=== PATIENT | male | born 1990 | race Two or more races ===

== ENCOUNTER 2019-10-03 11:03 | Inpatient (IN) | payer BC ==
[~2019-10-03] VITALS: Ht 180.3 cm; Wt 93.9 kg
[2019-10-03] VITALS (11 sets, daily range): BP systolic 115–167; BP diastolic 58–76
--- NOTE | 2019-10-03 11:49 | Pre-Procedure Note/Attestation ---
Pre-Procedure Note/Attestation Complete Prior to Procedure Planned Procedure: bilateral Procedure Narrative: Bilateral axillary excision of hidradenitis suppurativa with flap elevation and possible closure Attestation I attest that I discussed the nature of the procedure; its benefits; risks and complications; and alternatives (and the risks and benefits of such alternatives ), prior to the procedure, with the patient (or the patient's legal shipping services sales representative). I attest that, if there was a reasonable possibility of needing a blood transfusion, the patient (or the patient's legal shipping services sales representative) was given the [facility] standardized written summary, pursuant to the Gaurav Osmar Blood Safety Act ([place] Health and Safety Code # 1645, as amended). I attest that I re-evaluated the patient just prior to the surgery and that there has been no change in the patient's H&P, except as documented below: Hailey Keiht MD Oct 03, 2019 11:49
[2019-10-03] MEDS ORDERED: Midazolam 2mg/2ml Inj ONE (11:51)
[2019-10-03] MEDS ORDERED: fentaNYL 100 mcg/2 mL IV ONE (11:51)
[2019-10-03] MEDS ORDERED: Lidocaine 1% MPF 10mg/ml 5ml ONE (11:54)
[2019-10-03] MEDS ORDERED: Succinylcholine 20mg/ml 10ml vial ONE (11:58)
[2019-10-03] MEDS ORDERED: Bacitracin 50000 Units Vial ONE (11:58)
[2019-10-03] MEDS ORDERED: NeoSporin Gu Irrig 1ml Amp IRRIG ONE (11:58)
[2019-10-03] MEDS ORDERED: Rocuronium Bromide 100mg/10ml Inj IV ONE (11:58)
[2019-10-03] MEDS ORDERED: Lidocaine 1% 10mg/ml/Epi 0.005mg/ml 30ml vial INJ ONE (11:59)
[2019-10-03] MEDS ORDERED: EPINEPHrine 1mg/1ml Amp ONE (11:59)
[2019-10-03] MEDS ORDERED: PCA Education Pamphlet MISC ONE (12:00)
[2019-10-03] MEDS ORDERED: Zolpidem 5mg tab ORAL PRN (12:00)
[2019-10-03] MEDS ORDERED: PCA HYDROmorphone 1mg/ml 30 ML IV PRN (12:00)
[2019-10-03] MEDS ORDERED: Sterile Water Irrig 1000ml IRRIG ONE (12:00)
[2019-10-03] MEDS ORDERED: LR 1000ml ONE (12:00)
[2019-10-03] MEDS ORDERED: Neostigmine 1mg/ml 10ml Inj ONE (12:00)
[2019-10-03] MEDS ORDERED: NS Irrig 1000ml ONE (12:00)
[2019-10-03] MEDS ORDERED: Rate Change PCA 1 Each MISC PRN (12:00)
[2019-10-03] MEDS ORDERED: LR 1000ml 1,000 ML IVLG SCH (13:00)
[2019-10-03] MEDS ORDERED: Metoclopramide 10mg/2ml Inj IVP PRN (13:00)
[2019-10-03] MEDS ORDERED: DiphenhydrAMINE 50mg/ml Inj IVP PRN (13:00)
[2019-10-03] MEDS ORDERED: Meperidine 25mg/0.5ml Inj (FOR RIGORS ONLY) IV PRN (13:00)
[2019-10-03] MEDS ORDERED: Midazolam 2mg/2ml Inj IVP PRN (13:00)
[2019-10-03] MEDS ORDERED: Ketorolac 30mg Inj IV PRN (13:00)
[2019-10-03] MEDS ORDERED: Acetaminophen (Non formulary) 100 ML IV ONE (13:00)
--- NOTE | 2019-10-03 13:00 | Anethesia Preoperative Eval ---
Anesthesia Pre-op PMH/ROS General Date of Evaluation: Oct 03, 2019 Time of Evaluation: 11:50 Anesthesiologist: Colt ASA Score: ASA 2 Mallampati Score Class I : Soft palate, uvula, fauces, pillars visible Class II: Soft palate, uvula, fauces visible Class III: Soft palate, base of uvula visible Class IV: Only hard plate visible Mallampati Classification: Class II Surgeon: Sagar Diagnosis: Bilateral axillary HS Surgical Procedure: Excision of bilateral axillary HS Anesthesia History: none Family History: no anesthesia problems Allergies: Coded Allergies: No Known Allergies (Unverified , 10/03/19) Medications: see eMAR Patient NPO?: Yes Past Medical History Cardiovascular: Denies: HTN, CAD, CA, valve dz, arrhythmia, other Pulmonary: Denies: asthma, COPD, DANILO, other Gastrointestinal/Genitourinary: Reports: GERD - mild; Denies: CRI, ESRD, other Neurologic/Psychiatric: Reports: depression/anxiety; Denies: dementia, CVA, TIA, other Endocrine: Denies: DM, hypothyroidism, steroids, other HEENT: Denies: cataract (L), cataract (R), glaucoma, [place] (L), [place] (R), other Hematology/Immune: Denies: anemia, DVT, bleeding disorder, other Musculoskeletal/Integumentary: Reports: other - Recurrent HS; Denies: OA, RA, DJD, DDD, edema PMH Narrative: as above PSxH Narrative: Excision of pilonidal cyst Anesthesia Pre-op Phys. Exam Physician Exam Last Vital Signs Date Time Temp Pulse Resp B/P (MAP) Pulse Ox O2 Delivery O2 Flow Rate FiO2 10/03/19 11:46 98.6 70 18 115/73 100 Room Air Constitutional: NAD Neurologic: CN 2-12 intact Cardiovascular: RRR, no M/R/G Respiratory: CTA Gastrointestinal: S/NT/ND Airway Exam Mallampati Score: Class II MO: full Neck: flexible ROM: full Teeth: intact Dentures: no upper, no lower Anesthesia Pre-op A/P Labs see chart Studies Pre-op Studies: EKG - NSR Risk Assessment & Plan Assessment: ASA 2 Plan: GA with ETT Status Change Before Surgery: No Pre-Antibiotics Drug: Ancef 1gr. Given Within 1 Hr of Incision: Yes Time Given: 12:20 Mino Gregory MD Oct 03, 2019 13:00
[2019-10-03] MEDS ORDERED: Morphine Sulfate 10mg/ml Inj ONE (13:06)
[2019-10-03] MEDS ORDERED: Sodium Chloride 10ml vial INJ ONE (13:09)
[2019-10-03] MEDS ORDERED: Ketorolac 30mg Inj ONE (13:09)
[2019-10-03] MEDS ORDERED: Glycopyrrolate 0.2mg/ml 1ml Vial ONE (13:09)
[2019-10-03] MEDS ORDERED: Surgicel 4in x 8in TOPIC ONE (13:21)
--- NOTE | 2019-10-03 13:48 | Operative Note - PDOC ---
Operative Note Operative Note Pre-op Diagnosis: Bilateral axillary hidradenitis suppurativa Post-op Diagnosis: same as pre-op Surgeon: Sagar Bed Spring Maker: Shelly Anesthesia: general Specimen: yes Complications: none Condition: stable Estimated Blood Loss: minimal Drains: none Implant(s) used?: No Hailey Keith MD Oct 03, 2019 13:48
--- NOTE | 2019-10-03 14:04 | Immediate Post-Op Evaluation ---
Immediate Post-Op Evalulation Immediate Post-Op Evalulation Procedure: Excision of bilateral axillary hydradenitis Date of Evaluation: Oct 03, 2019 Time of Evaluation: 14:03 IV Fluids: 1000 Blood Products: none Estimated Blood Loss: 50 Urinary Output: none Blood Pressure Systolic: 156 Blood Pressure Diastolic: 72 Pulse Rate: 86 Respiratory Rate: 20 O2 Sat by Pulse Oximetry: 99 Temperature (Fahrenheit): 97.6 Pain Score (1-10): 1 Nausea: No Vomiting: No Complications none Patient Status: reacts, patent, extubated, none Hydration Status: adequate Mino Gregory MD Oct 03, 2019 14:04
[2019-10-03] MEDS ORDERED: Milk of Magnesia 30ml Ud ORAL PRN (15:45)
[2019-10-03] MEDS: LR 1000ml 1,000 ML IV SCH (16:23)
--- NOTE | 2019-10-03 16:45 | History and Physical ---
History of Present Illness General Date patient seen: Oct 03, 2019 Time patient seen: 16:25 Reason for Hospitalization: pain, post surgical hypoxia, open surgical wound Present Illness HPI 28 year old gentleman with a past medical history of hydradenitis presents post surgery with Dr. Keith of excision of b/l hydradenitis ini the axillary region. Pateint tolerated proedure well. The was only 50cc estimated blood loss. He received 1L of NS during the procedure. After surgery pt remained hypoxia and is currently on 3L NC. He has some pain at the surgical site that is requiring IV pain medication. Patient will be admitted for pain control, supplemental oxygen management and IV antibiotic management. Allergies: Coded Allergies: No Known Allergies (Unverified , 10/03/19) COVID-19 Screening Contact w/high risk pt: No Experienced COVID-19 symptoms?: No Patient History Healthcare decision maker N Resuscitation status Full Advanced Directive on File Family History Family History: FH: CAD (coronary artery disease) Review of Systems Constitutional: Reports: no symptoms Eye: Reports: no symptoms ENT: Reports: no symptoms Respiratory: Reports: no symptoms Cardiovascular: Reports: no symptoms Gastrointestinal: Reports: no symptoms Genitourinary: Reports: no symptoms Musculoskeletal: Reports: no symptoms Skin: Reports: other - Hydradenitis Psychiatric: Reports: no symptoms Neurological: Reports: no symptoms Endocrine: Reports: no symptoms Hematologic/Lymphatic: Reports: no symptoms All Other Systems: negative except mentioned in HPI ROS Narrative Patient feeling well after surgery. wants to eat food brought by family. Physical Exam General Appearance: no apparent distress, alert, lethargic, alert oriented x3 Lines, tubes and drains: peripheral HEENT: normocephalic, atraumatic, PERRL Neck: non-tender, normal alignment, supple Respiratory/Chest: lungs clear, normal breath sounds, no respiratory distress, no accessory muscle use, decreased breath sounds Cardiovascular/Chest: normal rate, regular rhythm, no gallop/murmur, no JVD Abdomen: non tender, soft, no organomegaly, no mass Extremities: non-tender, normal inspection Skin Exam: normal pigmentation, warm/dry, other - surgical wounds in axilla Neurologic: director of cath lab II-XII grossly normal, alert, oriented x 3, responsive, normal mood/affect Last 24 Hour Vital Signs Date Time Temp Pulse Resp B/P (MAP) Pulse Ox O2 Delivery O2 Flow Rate FiO2 10/03/19 15:21 97.9 10/03/19 15:06 14 10/03/19 14:57 97.9 10/03/19 14:55 97.9 57 13 100 Nasal Cannula 3 145/58 10/03/19 14:51 15 10/03/19 14:40 61 15 100 Nasal Cannula 3 147/62 10/03/19 14:26 60 19 100 Nasal Cannula 3 154/63 10/03/19 14:16 64 15 100 Simple Mask 6 147/62 10/03/19 14:06 65 15 100 Simple Mask 6 140/61 10/03/19 14:04 86 20 99 10/03/19 14:01 64 13 100 Simple Mask 6 140/63 10/03/19 13:56 97.8 92 22 100 Simple Mask 6 167/72 10/03/19 11:46 98.6 70 18 115/73 100 Room Air 10/03/19 11:25 Room Air Height (Feet): 5 Height (Inches): 11.00 Weight (Pounds): 207 Medications Current Medications Medications (Trade) Dose Ordered Sig/Miryam Route PRN Reason Start Time Stop Time Status Last Admin Dose Admin Acetaminophen (Tylenol) 650 mg Q4H PRN ORAL FEVER (T>100.5F) 10/03/19 12:00 11/02/19 11:59 Dextrose (Dextrose 50%) 25 ml Q30M PRN IV Hypoglycemia 10/03/19 15:45 01/01/20 15:44 Dextrose (Dextrose 50%) 50 ml Q30M PRN IV Hypoglycemia 10/03/19 15:45 01/01/20 15:44 Docusate Sodium (Colace) 100 mg TWICE A DAY ORAL 10/03/19 18:00 11/02/19 17:59 Heparin Sodium (Porcine) (Heparin 5000 units/ml) 5,000 units EVERY 12 HOURS SUBQ 10/03/19 21:00 11/17/19 20:59 Hydromorphone HCl 30 ml @ 0 mls/hr Q24H PRN IV For Pain 10/03/19 12:00 10/05/19 11:59 10/03/19 14:51 Lactated Ringer's 1,000 ml @ 75 mls/hr [id number] IV 10/03/19 16:30 11/02/19 16:29 10/03/19 16:23 Magnesium Hydroxide (Mom) 30 ml HSPRN PRN ORAL Constipation 10/03/19 15:45 11/02/19 15:44 Miscellaneous Medication (TRACK LAYING EQUIPMENT OPERATOR Rate Change) 1 ea DAILYPRN PRN MISC rate change 10/03/19 12:00 10/05/19 11:59 Miscellaneous Medication (TRACK LAYING EQUIPMENT OPERATOR shift volume) 1 ea Q12HR@0700,1900 MISC 10/03/19 19:00 10/05/19 18:59 Ondansetron HCl (Zofran) 4 mg Q6H PRN IVP Nausea & Vomiting 10/03/19 15:45 11/02/19 15:44 Zolpidem Tartrate (Ambien) 5 mg HSPRN PRN ORAL Insomnia 10/03/19 12:00 10/10/19 11:59 Assessment/Plan Problem List: (1) Hypoxia ICD Codes: R09.02 - Hypoxemia SNOMED: 086630228 (2) Hidradenitis axillaris ICD Codes: L73.2 - Hidradenitis suppurativa SNOMED: 734138247 (3) Hidradenitis suppurativa ICD Codes: L73.2 - Hidradenitis suppurativa SNOMED: 90170453 (4) Intractable pain ICD Codes: R52 - Pain, unspecified SNOMED: 83168396 Assessment/Plan: 28 year old gentleman with hydradenitis of the axilla present after surgery with pain and hypoxia. # Hydradenitis axillaris - S/P excision 10/02 # Post surgical Pain # Post-surgical hypoxia - likely atelectasis - Order basic labs - Continue Ancef - Follow up cultures - Pain control with TRACK LAYING EQUIPMENT OPERATOR pump. - Out of bed to chair - Regular diet if pass bedside swallow eval. - Wound care - Supplimental O2 to keepsaturation above 92% - SubQ heparin 5000 units BID I spent 70 min on this admission talking with patient and family. Coordinated with Surgeon. Literature review of Hydaradenitis. Multiple calls from nursing and staff. Extensive chart review. Saqib Navarro M.D. Oct 03, 2019 16:45
[2019-10-03] MEDS: Docusate 100mg cap ORAL SCH (17:51)
--- NOTE | 2019-10-03 18:15 | Operative Note - Dictated ---
DATE OF OPERATION: 10/03/2019 PREOPERATIVE DIAGNOSIS: Bilateral axillary hidradenitis suppurativa. POSTOPERATIVE DIAGNOSIS: Bilateral axillary hidradenitis suppurativa. PROCEDURES: 1. Radical excision of left axillary infected tissue bearing hidradenitis suppurativa resulting in a defect that measured 10 x 8 cm. 2. Radical excision of right axillary infected tissue bearing hidradenitis suppurativa resulting in a defect that measured 10 x 6 cm. 3. Elevation of a left fasciocutaneous thoracodorsal artery mechanical shop laborer flap for staged closure of left axillary wound. 4. Elevation of a right fasciocutaneous thoracodorsal artery mechanical shop laborer flap for staged closure of right axillary wound. 5. Excision of hidradenitis suppurativa focus in right upper arm. SURGEON: Hailey Keith MD. PROTOCOL MANAGER: Azael Bravo MD. ANESTHESIA: General. EBL: Minimal. COMPLICATIONS: None. DRAINS: None. SPECIMEN: Included the bilateral axillary tissue as well as a right upper arm tissue. DISPOSITION: Stable to the recovery room. INDICATIONS FOR SURGERY: This is a 28-year-old male with a longstanding history of hidradenitis suppurativa in his bilateral axillae who I saw in my office and examined and noted that he had extensive disease involving his axillary regions. He had tried and failed medical management and based on his exam and symptoms, I felt that he was an appropriate candidate for urgent treatment to address his symptoms. The level infection that was present was more significant on the left side. There was purulent drainage from that area. There were also some areas of drainage in the right but not to the extent that was present on the left axilla. Given the presence of infection, it will be more prudent to perform a staged excision and closure with removal of the infected tissue today followed by a staged closure of the wounds within the next 72 hours with definitive closure using the flap that will be raised in this operation. DETAILS OF THE OPERATION: The patient was brought to the operating room, placed supine on the operating table. His bilateral axillae were prepped and draped in a sterile usual fashion. The area of disease in the left axilla was marked using a marking pen and a #15 blade was then used to make the incision around the skin removing the disease bearing tissue. Electrocautery was then used to dissect further down to the axillary fascia. The specimen was then removed on block. Upon completion of the excision of the infected hidradenitis tissue in the axilla, the resulting defect measured 10 x cm. A corresponding fasciocutaneous thoracodorsal artery mechanical shop laborer flap that was U-shaped was designed and a #10 blade was used to make sure that it would fit once transposed into the defect. Once dimension of the flap were noted to be appropriate, #15 blade was then used to make this U-shaped incision over the skin and dissection was carried down all the way to the level of the latissimus muscle fascia and the flap was elevated completely to its base to allow for a free tension-free transposition into the axillary defect. The wound was temporally closed with ar by closing the donor site as well as placing the flap into the defect and there was noted to be good soft tissue coverage without any tension. Once again given the fact that there was pus present within the specimen, I felt that it would be most prudent to perform a delayed closure of the wound to reduce the incidence of postoperative wound and surgical site infections and as such the wound was then copiously irrigated with pulse lavage. The flap was then placed back into its donor site and stapled in position and the axillary defect was then covered with a bulky dressing and a bulky dressings were applied to the whole surgical site. We then turned our attention to the contralateral side. In a similar fashion, a 15-blade was used to make the incision around the affected area that was marked and then electrocautery was used to dissect all the way down to the level of the axillary fascia. Once the specimen was removed on block, this resulted in a 10 x 6 centimeter defect. With the defect well visualized, corresponding thoracodorsal artery fasciocutaneous flap was elevated that was fashioned similar as to the other side with dimensions confirmed to be fitting the defect by using a #10 blade and once the dimensions were confirmed to be of appropriate size #15 blade was then used to make the U-shaped incision. Dissection was carried down to the latissimus muscle fascia and the flap was elevated and transposed into the defect without any tension or tethering. As was done on the other side, the wound was tentatively closed with ar to make sure that all the soft tissue coverage was tension free and adequate but again given the fact that this was a infected wound we decided to delayed closure by putting flap back into the donor site, stapling it in position and bring the patient back within 72 hours for definitive flap inset and adjacent tissue transfer closure of the wound. The patient tolerated the procedure well. There was no complications. Plan as stated will be to bring the patient back to the operating room within 72 hours. Hailey Keith M.D. DR: Ewa JOB#: [id number] CC:
[2019-10-03] MEDS: PCA shift volume MISC SCH (19:25)
[2019-10-03] MEDS: ceFAZolin sod 1 GM in D5W 55 ML IVPB SCH (20:11)
[2019-10-03 20:13] LABS: BASOPHILS % (AUTO) 0.8 % (0.0-2.0); EOSINOPHILS % (AUTO) 1.5 % (0.0-3.0); HEMATOCRIT 40.7 % (42.0-52.0); LYMPHOCYTES % (AUTO) 31.4 % (20.0-45.0); MEAN CORPUSCULAR VOLUME 84 FL (80-99); MONOCYTES % (AUTO) 8.5 % (1.0-10.0); NEUTROPHILS % (AUTO) 57.8 % (45.0-75.0); PLATELET COUNT 268 K/UL (150-450); RED BLOOD COUNT 4.83 M/UL (4.70-6.10); RED CELL DISTRIBUTION WIDTH 11.2 % (11.6-14.8); WHITE BLOOD COUNT 10.4 K/UL (4.8-10.8)
[2019-10-03 20:27] LABS: ALANINE AMINOTRANSFERASE 32 U/L (12-78); ALBUMIN 3.4 G/DL (3.4-5.0); ALBUMIN/GLOBULIN RATIO 0.9 (1.0-2.7); ALKALINE PHOSPHATASE 108 U/L (46-116); ANION GAP 6 mmol/L (5-15); ASPARTATE AMINO TRANSFERASE 21 U/L (15-37); BILIRUBIN,TOTAL 0.5 MG/DL (0.2-1.0); BLOOD UREA NITROGEN 12 mg/dL (7-18); CALCIUM 8.2 MG/DL (8.5-10.1); CARBON DIOXIDE 28 MMOL/L (21-32); CHLORIDE 105 MMOL/L (98-107); CREATININE 1.1 MG/DL (0.55-1.30); POTASSIUM 3.6 MMOL/L (3.5-5.1); SODIUM 139 MMOL/L (136-145)
[2019-10-03] MEDS ORDERED: Heparin 5000 units/ml inj SUBQ SCH (21:00)
[2019-10-03] MEDS: Heparin 5000 units/ml inj SUBQ SCH (21:47)
[2019-10-04] VITALS (7 sets, daily range): BP systolic 101–144; BP diastolic 55–80
[2019-10-04] MEDS: LR 1000ml 1,000 ML IV SCH ×2 (05:02→17:19)
[2019-10-04] MEDS: ceFAZolin sod 1 GM in D5W 55 ML IVPB SCH ×3 (05:03→20:43)
[2019-10-04 05:48] LABS: BASOPHILS % (AUTO) 0.6 % (0.0-2.0); EOSINOPHILS % (AUTO) 1.6 % (0.0-3.0); HEMATOCRIT 41.4 % (42.0-52.0); HEMOGLOBIN 14.2 G/DL (14.2-18.0); LYMPHOCYTES % (AUTO) 31.8 % (20.0-45.0); MEAN CORPUSCULAR VOLUME 85 FL (80-99); MONOCYTES % (AUTO) 6.5 % (1.0-10.0); NEUTROPHILS % (AUTO) 59.6 % (45.0-75.0); PLATELET COUNT 248 K/UL (150-450); RED BLOOD COUNT 4.84 M/UL (4.70-6.10); RED CELL DISTRIBUTION WIDTH 10.6 % (11.6-14.8); WHITE BLOOD COUNT 9.4 K/UL (4.8-10.8)
[2019-10-04 06:11] LABS: ALANINE AMINOTRANSFERASE 29 U/L (12-78); ALBUMIN 3.2 G/DL (3.4-5.0); ALBUMIN/GLOBULIN RATIO 0.9 (1.0-2.7); ALKALINE PHOSPHATASE 110 U/L (46-116); ANION GAP 6 mmol/L (5-15); ASPARTATE AMINO TRANSFERASE 19 U/L (15-37); BILIRUBIN,TOTAL 0.7 MG/DL (0.2-1.0); BLOOD UREA NITROGEN 11 mg/dL (7-18); CARBON DIOXIDE 28 MMOL/L (21-32); CHLORIDE 103 MMOL/L (98-107); CREATININE 1.2 MG/DL (0.55-1.30); POTASSIUM 3.6 MMOL/L (3.5-5.1); SODIUM 137 MMOL/L (136-145)
[2019-10-04] MEDS: PCA shift volume MISC SCH ×2 (07:02→19:16)
[2019-10-04] MEDS: Heparin 5000 units/ml inj SUBQ SCH ×2 (08:09→20:47)
[2019-10-04] MEDS: Docusate 100mg cap ORAL SCH ×2 (08:10→17:18)
--- NOTE | 2019-10-04 10:12 | General Progress Note ---
Progress Note Progress Note Pt seen and examined. Doing well. Dressings soaked on the left side. Had to be replaced. Pain is well controlled. Continue LINING VAMPER and IV abx. Plan for OR on Sunday for definitive closure of wounds. Consent to be signed today. Hailey Washington MD, MD Oct 04, 2019 10:12
--- NOTE | 2019-10-04 11:13 | General Progress Note ---
Assessment/Plan Problem List: (1) Hypoxia ICD Codes: R09.02 - Hypoxemia SNOMED: 926016183 (2) Hidradenitis axillaris ICD Codes: L73.2 - Hidradenitis suppurativa SNOMED: 562680442 (3) Hidradenitis suppurativa ICD Codes: L73.2 - Hidradenitis suppurativa SNOMED: 97771759 (4) Intractable pain ICD Codes: R52 - Pain, unspecified SNOMED: 33839520 Assessment/Plan: 28 year old gentleman with hydradenitis of the axilla present after surgery with pain and hypoxia. # Hydradenitis axillaris - S/P excision 10/02 # Post surgical Pain # Post-surgical hypoxia - likely atelectasis # Drainage from Axilla surgical site - Labs reviewd - Continue Ancef - Follow up cultures - Pain control with GREENS PICKER pump. - Ambulate with assist - Regular diet - Wound care - Supplimental O2 to keepsaturation above 92% - SubQ heparin 5000 units BID - Plan for surgical closure on Thursday 10/05 I spent 36 min on this encounter talking with patient and family. Coordinated with Surgeon. Multiple calls from nursing and staff. Subjective Date patient seen: Oct 04, 2019 Time patient seen: 11:01 ROS Limited/Unobtainable: No Constitutional: Reports: no symptoms HEENT: Reports: no symptoms Cardiovascular: Reports: no symptoms Respiratory: Reports: no symptoms Gastrointestinal/Abdominal: Reports: no symptoms Genitourinary: Reports: no symptoms Neurologic/Psychiatric: Reports: no symptoms Endocrine: Reports: no symptoms Hematologic/Lymphatic: Reports: no symptoms Allergies: Coded Allergies: No Known Allergies (Unverified , 10/03/19) Subjective Pateint feels good. In some pain. Using GREENS PICKER pump. Objective Last 24 Hour Vital Signs Date Time Temp Pulse Resp B/P (MAP) Pulse Ox O2 Delivery O2 Flow Rate FiO2 10/04/19 09:00 Room Air 10/04/19 08:00 98.1 72 17 124/67 (86) 98 10/04/19 04:00 98.2 71 18 119/64 (82) 98 10/04/19 00:00 97.8 63 18 101/55 (70) 98 10/03/19 21:00 Nasal Cannula 3.0 10/03/19 20:00 97.9 63 18 131/67 (88) 100 10/03/19 16:00 97.9 87 17 122/69 (86) 100 10/03/19 15:35 Nasal Cannula 3.0 10/03/19 15:21 97.9 10/03/19 15:15 97.5 64 18 135/76 (95) 100 10/03/19 15:06 14 10/03/19 14:57 97.9 10/03/19 14:55 97.9 57 13 100 Nasal Cannula 3 145/58 10/03/19 14:51 15 10/03/19 14:40 61 15 100 Nasal Cannula 3 147/62 10/03/19 14:26 60 19 100 Nasal Cannula 3 154/63 10/03/19 14:16 64 15 100 Simple Mask 6 147/62 10/03/19 14:06 65 15 100 Simple Mask 6 140/61 10/03/19 14:04 86 20 99 10/03/19 14:01 64 13 100 Simple Mask 6 140/63 10/03/19 13:56 97.8 92 22 100 Simple Mask 6 167/72 10/03/19 11:46 98.6 70 18 115/73 100 Room Air 10/03/19 11:25 Room Air Intake and Output 10/03/19 10/04/19 19:00 07:00 Intake Total 1375 ml 1600 ml Output Total 50 ml Balance 1325 ml 1600 ml Intake Oral 200 ml 700 ml IV Total 1175 ml 900 ml Output Estimated Blood Loss 50 ml # Voids 1 2 Laboratory Tests 10/03/19 19:55: White Blood Count 10.4, Red Blood Count 4.83, Hemoglobin 14.0L, Hematocrit 40.7L , Mean Corpuscular Volume 84, Mean Corpuscular Hemoglobin 29.1, Mean Corpuscular Hemoglobin Concent 34.5, Red Cell Distribution Width 11.2L, Platelet Count 268, Mean Platelet Volume 8.5, Neutrophils (%) (Auto) 57.8, Lymphocytes (%) (Auto) 31.4, Monocytes (%) (Auto) 8.5, Eosinophils (%) (Auto) 1.5, Basophils (%) (Auto) 0.8, Sodium Level 139, Potassium Level 3.6, Chloride Level 105, Carbon Dioxide Level 28, Anion Gap 6, Blood Urea Nitrogen 12, Creatinine 1.1, Estimat Glomerular Filtration Rate > 60, Glucose Level 95, Calcium Level 8.2L, Magnesium Level 1.9, Total Bilirubin 0.5, Aspartate Amino Transf (AST/SGOT) 21, Alanine Aminotransferase (ALT/SGPT) 32, Alkaline Phosphatase 108, Total Protein 7.0, Albumin 3.4, Globulin 3.6, Albumin/Globulin Ratio 0.9L 10/04/19 05:05: White Blood Count 9.4, Red Blood Count 4.84, Hemoglobin 14.2, Hematocrit 41.4L, Mean Corpuscular Volume 85, Mean Corpuscular Hemoglobin 29.3, Mean Corpuscular Hemoglobin Concent 34.3, Red Cell Distribution Width 10.6L, Platelet Count 248, Mean Platelet Volume 8.3, Neutrophils (%) (Auto) 59.6, Lymphocytes (%) (Auto) 31.8, Monocytes (%) (Auto) 6.5, Eosinophils (%) (Auto) 1.6, Basophils (%) (Auto ) 0.6, Sodium Level 137, Potassium Level 3.6, Chloride Level 103, Carbon Dioxide Level 28, Anion Gap 6, Blood Urea Nitrogen 11, Creatinine 1.2, Estimat Glomerular Filtration Rate > 60, Glucose Level 88, Calcium Level 8.0L, Total Bilirubin 0.7, Aspartate Amino Transf (AST/SGOT) 19, Alanine Aminotransferase ( ALT/SGPT) 29, Alkaline Phosphatase 110, Total Protein 6.8, Albumin 3.2L, Globulin 3.6, Albumin/Globulin Ratio 0.9L Height (Feet): 5 Height (Inches): 11.00 Weight (Pounds): 205 General Appearance: no apparent distress, alert Neck: non-tender, normal alignment, supple Cardiovascular: normal peripheral pulses, normal rate, regular rhythm, no gallop/murmur, no JVD Respiratory/Chest: chest wall non-tender, normal breath sounds, no respiratory distress, no accessory muscle use Abdomen: non tender, soft, no organomegaly, no mass Pelvis: normal external exam Extremities: normal range of motion, non-tender, normal inspection Edema: no edema noted Arm (L), no edema noted Arm (R), no edema noted Leg (L), no edema noted Leg (R), no edema noted Pedal (L), no edema noted Pedal (R), no edema noted Generalized Neurologic: manufacturing manager II-XII grossly normal, no motor/sensory deficits, alert, oriented x 3, responsive, normal mood/affect Skin: other - drainage from axillary sugical site Saqib Navarro M.D. Oct 04, 2019 11:13
[2019-10-04] MEDS: DiphenhydrAMINE 50mg/ml Inj IVP PRN (20:43)
[2019-10-04] MEDS ORDERED: Heparin 5000 units/ml inj SUBQ SCH (21:00)
[2019-10-05 03:44] VITALS: BP 149/90
[2019-10-05] MEDS: DiphenhydrAMINE 50mg/ml Inj IVP PRN ×4 (04:10→23:16)
[2019-10-05] MEDS: ceFAZolin sod 1 GM in D5W 55 ML IVPB SCH ×3 (05:16→21:33)
[2019-10-05] MEDS: PCA shift volume MISC SCH ×2 (06:58→19:07)
[2019-10-05 08:00] VITALS: BP 115/68
[2019-10-05] MEDS: LR 1000ml 1,000 ML IV SCH ×2 (08:35→21:33)
[2019-10-05] MEDS: Docusate 100mg cap ORAL SCH ×2 (08:35→17:13)
[2019-10-05] MEDS: Heparin 5000 units/ml inj SUBQ SCH (08:37)
--- NOTE | 2019-10-05 10:50 | General Progress Note ---
Assessment/Plan Problem List: (1) Hypoxia ICD Codes: R09.02 - Hypoxemia SNOMED: 214955461 (2) Hidradenitis axillaris ICD Codes: L73.2 - Hidradenitis suppurativa SNOMED: 096365453 (3) Hidradenitis suppurativa ICD Codes: L73.2 - Hidradenitis suppurativa SNOMED: 31254856 (4) Intractable pain ICD Codes: R52 - Pain, unspecified SNOMED: 64833868 Assessment/Plan: 28 year old gentleman with hydradenitis of the axilla present after surgery with pain and hypoxia. # Hydradenitis axillaris - S/P excision 10/02 # Post surgical Pain # Post-surgical hypoxia - likely atelectasis # Drainage from Axilla surgical site - Labs reviewd - Continue Ancef - Follow up cultures - Pain control with DECORATOR LIGHTING FIXTURES pump. - Ambulate with assist - Regular diet - Wound care - Supplimental O2 to keepsaturation above 92% - SubQ heparin 5000 units BID - Plan for surgical closure on Thursday 10/05 I spent 36 min on this encounter talking with patient and family. Coordinated with Surgeon. Multiple calls from nursing and staff. Subjective Date patient seen: Oct 05, 2019 Time patient seen: 09:00 ROS Limited/Unobtainable: No Constitutional: Reports: no symptoms HEENT: Reports: no symptoms Cardiovascular: Reports: no symptoms Respiratory: Reports: no symptoms Gastrointestinal/Abdominal: Reports: no symptoms Genitourinary: Reports: no symptoms Neurologic/Psychiatric: Reports: no symptoms Endocrine: Reports: no symptoms Hematologic/Lymphatic: Reports: no symptoms Allergies: Coded Allergies: No Known Allergies (Unverified , 10/03/19) Subjective Patient feels good.just complaining of itching at bandage site. Objective Last 24 Hour Vital Signs Date Time Temp Pulse Resp B/P (MAP) Pulse Ox O2 Delivery O2 Flow Rate FiO2 10/05/19 08:00 97.8 91 20 115/68 (84) 96 10/05/19 03:44 98.4 96 18 149/90 (109) 97 10/04/19 23:48 99.2 87 18 131/80 (97) 97 10/04/19 21:00 Room Air 10/04/19 20:00 98.8 93 20 122/74 (90) 96 10/04/19 16:00 98.5 82 17 122/60 (80) 99 10/04/19 12:00 97.8 74 18 144/64 (90) 97 Intake and Output 10/04/19 10/05/19 19:00 07:00 Intake Total 900 ml 500 ml Output Total 2400 ml Balance 900 ml -1900 ml Intake Oral 900 ml 500 ml Output Urine Total 2400 ml # Voids 5 4 Height (Feet): 5 Height (Inches): 11.00 Weight (Pounds): 205 General Appearance: no apparent distress, alert Neck: non-tender, normal alignment, supple Cardiovascular: normal peripheral pulses, normal rate, regular rhythm, no gallop/murmur, no JVD Respiratory/Chest: chest wall non-tender, lungs clear, normal breath sounds, no respiratory distress, no accessory muscle use Abdomen: normal bowel sounds, non tender, soft, no organomegaly, no mass Extremities: non-tender, normal inspection Edema: no edema noted Arm (L), no edema noted Arm (R), no edema noted Leg (L), no edema noted Leg (R), no edema noted Pedal (L), no edema noted Pedal (R), no edema noted Generalized Neurologic: music department chair II-XII grossly normal, alert, oriented x 3, responsive, normal mood/affect Skin: other - nodrainage out of surgical wound Saqib Navarro M.D. Oct 05, 2019 10:50
[2019-10-05 12:00] VITALS: BP 108/63
[2019-10-05] MEDS ORDERED: PCA HYDROmorphone 1mg/ml 30 ML IV PRN (12:57)
[2019-10-05] MEDS ORDERED: Rate Change PCA 1 Each MISC PRN (13:00)
[2019-10-05 16:00] VITALS: BP 123/73
[2019-10-05 20:00] VITALS: BP 116/74
[2019-10-05 23:40] VITALS: BP 116/69
[2019-10-06] VITALS (10 sets, daily range): BP systolic 123–167; BP diastolic 66–82
[2019-10-06] MEDS: ceFAZolin sod 1 GM in D5W 55 ML IVPB SCH ×3 (05:01→21:19)
[2019-10-06 06:45] LABS: BASOPHILS % (AUTO) 0.7 % (0.0-2.0); EOSINOPHILS % (AUTO) 2.2 % (0.0-3.0); HEMATOCRIT 41.6 % (42.0-52.0); LYMPHOCYTES % (AUTO) 29.6 % (20.0-45.0); MEAN CORPUSCULAR VOLUME 87 FL (80-99); MONOCYTES % (AUTO) 8.6 % (1.0-10.0); NEUTROPHILS % (AUTO) 58.9 % (45.0-75.0); PLATELET COUNT 261 K/UL (150-450); WHITE BLOOD COUNT 9.4 K/UL (4.8-10.8)
--- NOTE | 2019-10-06 07:02 | 48 Hour Post Anesthesia Eval ---
Post Anesthesia Evaluation Procedure: Excision of bilateral axillary hydradenitis Date of Evaluation: Oct 06, 2019 Time of Evaluation: 07:01 Blood Pressure Systolic: 126 0: 65 Pulse Rate: 66 Respiratory Rate: 14 Temperature (Fahrenheit): 98.5 O2 Sat by Pulse Oximetry: 96 Airway: patent Nausea: No Vomiting: No Hydration Status: adequate Mental Status/LOC: patient returned to baseline Post-Anesthesia Complications: none Follow-up care needed: N/A Lilian Watson CRNA Oct 06, 2019 07:02
[2019-10-06 07:11] LABS: ALANINE AMINOTRANSFERASE 77 U/L (12-78); ALBUMIN 3.3 G/DL (3.4-5.0); ALBUMIN/GLOBULIN RATIO 0.8 (1.0-2.7); ALKALINE PHOSPHATASE 120 U/L (46-116); ANION GAP 5 mmol/L (5-15); ASPARTATE AMINO TRANSFERASE 61 U/L (15-37); BILIRUBIN,TOTAL 0.4 MG/DL (0.2-1.0); BLOOD UREA NITROGEN 11 mg/dL (7-18); CALCIUM 8.8 MG/DL (8.5-10.1); CARBON DIOXIDE 31 MMOL/L (21-32); CHLORIDE 104 MMOL/L (98-107); CREATININE 1.3 MG/DL (0.55-1.30); POTASSIUM 3.7 MMOL/L (3.5-5.1); SODIUM 140 MMOL/L (136-145)
[2019-10-06] MEDS: PCA shift volume MISC SCH ×2 (07:28→19:24)
[2019-10-06] MEDS: Docusate 100mg cap ORAL SCH ×2 (09:00→18:00)
[2019-10-06] MEDS ORDERED: LR 1000ml 1,000 ML IVLG SCH (10:23)
--- NOTE | 2019-10-06 10:25 | Immediate Post-Op Evaluation ---
Immediate Post-Op Evalulation Immediate Post-Op Evalulation Procedure: Bilateral Flap Closure, Axilla Date of Evaluation: Oct 06, 2019 Time of Evaluation: 15:39 IV Fluids: 100 Blood Products: 0 Estimated Blood Loss: 25 Urinary Output: 0 Blood Pressure Systolic: 183 Blood Pressure Diastolic: 82 Pulse Rate: 91 Respiratory Rate: 16 O2 Sat by Pulse Oximetry: 100 Temperature (Fahrenheit): 97.5 Pain Score (1-10): 2 Nausea: No Vomiting: No Complications 0 Patient Status: awake, reacts, patent, extubated, none Hydration Status: adequate Dru Gram Ancef IV Given Within 1 Hr of Incision: Yes Time Given: 13:16 Delta Blount MD Oct 06, 2019 10:25
[2019-10-06] MEDS ORDERED: oxyCODONE HCL/Acetaminophen 5/325mg ORAL PRN (10:30)
[2019-10-06] MEDS ORDERED: Acetaminophen (Non formulary) 100 ML IV ONE (10:30)
[2019-10-06] MEDS ORDERED: LORazepam Inj 2mg/ml 1ml IV PRN (10:30)
[2019-10-06] MEDS ORDERED: Meperidine 25mg/0.5ml Inj (FOR RIGORS ONLY) IV PRN (10:30)
[2019-10-06] MEDS ORDERED: HYDROcodone/Acetamin 7.5/325 tab ORAL PRN (10:30)
[2019-10-06] MEDS ORDERED: Midazolam 2mg/2ml Inj IVP PRN (10:30)
[2019-10-06] MEDS ORDERED: Atropine Sulfate 0.4mg/ml inj IVP PRN (10:30)
[2019-10-06] MEDS ORDERED: Ketorolac 30mg Inj IV PRN ×2 (10:30)
[2019-10-06] MEDS ORDERED: HYDROcodone/Acetamin 5/325 tab ORAL PRN (10:30)
[2019-10-06] MEDS ORDERED: Metoclopramide 10mg/2ml Inj IVP PRN ×2 (10:30→11:30)
[2019-10-06] MEDS ORDERED: fentaNYL 100 mcg/2 mL IV PRN (10:30)
[2019-10-06] MEDS ORDERED: Labetalol 5mg/ml 20ml vial IV PRN (10:30)
[2019-10-06] MEDS ORDERED: Hydromorphone 0.5mg/0.5ml inj IVP PRN (10:30)
[2019-10-06] MEDS ORDERED: DiphenhydrAMINE 50mg/ml Inj IVP PRN (10:30)
[2019-10-06] MEDS: LR 1000ml 1,000 ML IV SCH ×2 (11:10→23:37)
--- NOTE | 2019-10-06 11:25 | Pre-Procedure Note/Attestation ---
Pre-Procedure Note/Attestation Complete Prior to Procedure Planned Procedure: bilateral Procedure Narrative: Bilateral axillary wound flap reconstruction with closure of right arm wound Indications for Procedure Pre-Operative Diagnosis: Bilateral axillary hidradenitis suppurativa Attestation I attest that I discussed the nature of the procedure; its benefits; risks and complications; and alternatives (and the risks and benefits of such alternatives ), prior to the procedure, with the patient (or the patient's legal field representatives director). I attest that, if there was a reasonable possibility of needing a blood transfusion, the patient (or the patient's legal field representatives director) was given the [facility] standardized written summary, pursuant to the [place] Blood Safety Act ([place] Health and Safety Code # 1645, as amended). I attest that I re-evaluated the patient just prior to the surgery and that there has been no change in the patient's H&P, except as documented below: Hailey Keith MD Oct 06, 2019 11:25
[2019-10-06] MEDS ORDERED: Zolpidem 5mg tab ORAL PRN (11:30)
[2019-10-06] MEDS ORDERED: PCA HYDROmorphone 1mg/ml 30 ML IV PRN (11:30)
[2019-10-06] MEDS ORDERED: Lidocaine 1% MPF 10mg/ml 5ml ONE (11:30)
[2019-10-06] MEDS ORDERED: PCA Education Pamphlet MISC ONE (11:30)
[2019-10-06] MEDS ORDERED: Sodium Chloride 10ml vial INJ ONE (11:30)
[2019-10-06] MEDS ORDERED: Rate Change PCA 1 Each MISC PRN (11:30)
[2019-10-06] MEDS ORDERED: fentaNYL 100 mcg/2 mL IV ONE ×2 (11:31→14:35)
[2019-10-06] MEDS ORDERED: Lidocaine 1% Plain 30 ml INJ ONE ×2 (11:31→14:30)
[2019-10-06] MEDS ORDERED: NeoSporin Gu Irrig 1ml Amp IRRIG ONE (11:33)
[2019-10-06] MEDS ORDERED: Lidocaine 1% 10mg/ml/Epi 0.005mg/ml 30ml vial INJ ONE (11:33)
[2019-10-06] MEDS ORDERED: Bacitracin 50000 Units Vial ONE (11:33)
--- NOTE | 2019-10-06 12:02 | General Progress Note ---
Assessment/Plan Problem List: (1) Hypoxia ICD Codes: R09.02 - Hypoxemia SNOMED: 516111947 (2) Hidradenitis axillaris ICD Codes: L73.2 - Hidradenitis suppurativa SNOMED: 160529479 (3) Hidradenitis suppurativa ICD Codes: L73.2 - Hidradenitis suppurativa SNOMED: 50870346 (4) Intractable pain ICD Codes: R52 - Pain, unspecified SNOMED: 90362850 Assessment/Plan: 28 year old gentleman with hydradenitis of the axilla present after surgery with pain and hypoxia. # Hydradenitis axillaris - S/P excision 10/02 # Post surgical Pain # Post-surgical hypoxia - likely atelectasis # Drainage from Axilla surgical site - Labs reviewd - Continue Ancef - Follow up cultures - Pain control with DIRECTOR OF LABORATORY OPERATIONS pump. - Ambulate with assist - Regular diet - Wound care - Bowel regiment - Supplimental O2 to keepsaturation above 92% - SubQ heparin 5000 units BID -held for surgery - Surgical closure today. Home with home health. I spent 38 min on this encounter talking with patient and family. Coordinated with Surgeon. Multiple calls from nursing and staff. Case management coordination. Subjective Date patient seen: Oct 06, 2019 Time patient seen: 08:20 ROS Limited/Unobtainable: No Constitutional: Reports: no symptoms HEENT: Reports: no symptoms Cardiovascular: Reports: no symptoms Respiratory: Reports: no symptoms Gastrointestinal/Abdominal: Reports: constipated Genitourinary: Reports: no symptoms Neurologic/Psychiatric: Reports: no symptoms Endocrine: Reports: no symptoms Hematologic/Lymphatic: Reports: no symptoms Allergies: Coded Allergies: No Known Allergies (Unverified , 10/03/19) Subjective Patient feels good. Says there is some drainage from Left axilla. No BM yet. Objective Last 24 Hour Vital Signs Date Time Temp Pulse Resp B/P (MAP) Pulse Ox O2 Delivery O2 Flow Rate FiO2 10/06/19 09:00 Room Air 10/06/19 08:00 97.8 84 18 131/77 (95) 98 10/06/19 08:00 84 16 98 10/06/19 07:02 66 14 96 10/06/19 04:00 98.4 84 20 124/66 (85) 96 10/05/19 23:40 98.8 85 20 116/69 (85) 98 10/05/19 20:48 Room Air 10/05/19 20:00 99.0 95 18 116/74 (88) 96 10/05/19 16:00 98.7 92 20 123/73 (90) 98 10/05/19 13:34 97.6 10/05/19 12:00 97.6 87 20 108/63 (78) 95 Intake and Output 10/05/19 10/06/19 19:00 07:00 Intake Total 850 ml 500 ml Balance 850 ml 500 ml Intake Oral 850 ml 500 ml # Voids 4 4 Laboratory Tests 10/06/19 05:05: White Blood Count 9.4, Red Blood Count 4.80, Hemoglobin 14.0L, Hematocrit 41.6L , Mean Corpuscular Volume 87, Mean Corpuscular Hemoglobin 29.2, Mean Corpuscular Hemoglobin Concent 33.8, Red Cell Distribution Width 11.0L, Platelet Count 261, Mean Platelet Volume 8.1, Neutrophils (%) (Auto) 58.9, Lymphocytes (%) (Auto) 29.6, Monocytes (%) (Auto) 8.6, Eosinophils (%) (Auto) 2.2, Basophils (%) (Auto) 0.7, Sodium Level 140, Potassium Level 3.7, Chloride Level 104, Carbon Dioxide Level 31, Anion Gap 5, Blood Urea Nitrogen 11, Creatinine 1.3, Estimat Glomerular Filtration Rate > 60, Glucose Level 90, Calcium Level 8.8, Total Bilirubin 0.4, Aspartate Amino Transf (AST/SGOT) 61H, Alanine Aminotransferase (ALT/SGPT) 77, Alkaline Phosphatase 120H, Total Protein 7.2, Albumin 3.3L, Globulin 3.9, Albumin/Globulin Ratio 0.8L Height (Feet): 5 Height (Inches): 11.00 Weight (Pounds): 205 General Appearance: no apparent distress, alert, alert oriented x3 EENT: normal ENT inspection Neck: non-tender, normal alignment Cardiovascular: normal peripheral pulses, normal rate, regular rhythm, no gallop/murmur, no JVD Respiratory/Chest: chest wall non-tender, lungs clear, normal breath sounds, no respiratory distress, no accessory muscle use Abdomen: normal bowel sounds, non tender, soft, no organomegaly, no mass Pelvis: normal external exam Extremities: normal range of motion Edema: no edema noted Arm (L), no edema noted Arm (R), no edema noted Leg (L), no edema noted Leg (R), no edema noted Pedal (L), no edema noted Pedal (R), no edema noted Generalized Neurologic: principle industrial hygienist II-XII grossly normal, no motor/sensory deficits, alert, oriented x 3, normal mood/affect Skin: normal pigmentation, warm/dry, other - drainage from left axilla Saqib Navarro M.D. Oct 06, 2019 12:02
[2019-10-06] MEDS ORDERED: NS Irrig 1000ml ONE (13:30)
[2019-10-06] MEDS ORDERED: Sterile Water Irrig 1000ml IRRIG ONE (13:30)
[2019-10-06] MEDS ORDERED: Rocuronium Bromide 50mg/5ml Inj IV ONE (13:30)
[2019-10-06] MEDS ORDERED: Neostigmine 1mg/ml 10ml Inj ONE (13:30)
[2019-10-06] MEDS ORDERED: LR 1000ml ONE (13:30)
[2019-10-06] MEDS ORDERED: Surgicel 4in x 8in TOPIC ONE ×2 (13:42→14:34)
[2019-10-06] MEDS ORDERED: Glycopyrrolate 0.2mg/ml 1ml Vial ONE (14:37)
[2019-10-06] MEDS ORDERED: Neosporin Oint Ud Pkt TOPIC ONE (15:20)
--- NOTE | 2019-10-06 15:23 | Operative Note - PDOC ---
Operative Note Operative Note Pre-op Diagnosis: Bilateral axillary hidradenitis suppurativa Procedure: Flap closure of axillary wounds Post-op Diagnosis: same as pre-op Surgeon: Sagar Elevator Tender: Shelly Anesthesia: general Specimen: yes Complications: none Condition: stable Estimated Blood Loss: minimal Drains: KATHLEEN Implant(s) used?: No Hailey Keith MD Oct 06, 2019 15:22
--- NOTE | 2019-10-06 17:45 | Operative Note - Dictated ---
DATE OF OPERATION: 10/06/2019 PREOPERATIVE DIAGNOSIS: Bilateral open axillary wound status post excision of hidradenitis suppurativa with open right upper arm wound status post excision of hidradenitis suppurativa. POSTOPERATIVE DIAGNOSIS: Bilateral open axillary wound status post excision of hidradenitis suppurativa with open right upper arm wound status post excision of hidradenitis suppurativa. PROCEDURES: 1. Adjacent tissue transfer closure of left axillary wound measuring 10 x 8 cm by reelevation of previously raised lateral chest wall flap. 2. Adjacent tissue transfer closure of right axillary wound measuring 10 x 6 cm by reelevating previously raised lateral chest wall flap. 3. Secondary wound closure of open right arm wound that measured 4 x 3 cm. Status post excision of infected hidradenitis. SURGEON: Hailey Keith MD. WATER TREATMENT SPECIALIST: Azael Bravo MD. ANESTHESIA: General. DRAINS: Included a just a size 15 KATHLEEN on each side. EBL: Minimal. DISPOSITION: Stable to the recovery room. INDICATIONS FOR SURGERY: This is a 28-year-old male who is three days status post excision of infected hidradenitis suppurativa in bilateral axillae as well as right upper arm who underwent local wound care following the excision of the disease and it was noted that during this time, the flaps and also been previously elevated at the first operation were viable and they had good perfusion as such he was consented to undergo definitive flap inset and closure of his bilateral axillary wounds as well as secondary closure of his right arm wound. He understood the risks and benefits of surgery and agreed to proceed. DETAILS OF THE OPERATION: The patient was brought to the operating room and laid supine on the operating room table. His bilateral axilla and chest were prepped and draped in a sterile and usual fashion. As stated previously, the left axillary wound measured 10 x 8 cm and the corresponding flap that was required for definitive flap closure had been previously raised at the first operation as such the ar that were holding the flap and donor site were removed. The flap was fully mobilized and we noted that flap required a little bit more mobilization by freeing up some of the attachments at the base of the flap to allow for proper adjacent tissue transfer closure of the wound. With the flap fully mobilized, the wound was copiously irrigated with pulse lavage. Hemostasis was achieved. We then proceeded to transpose the flap into the 10 x 8 cm defect and it fit perfectly. The flap was inset along the adjacent tissue transfer to be completed by using layered closure of #0 and 2-0 Vicryl sutures. The donor site where the flap was harvested from was also closed in a layered fashion of #0 and 2-0 Vicryl sutures and the skin was closed with a running 3-0 Prolene suture followed by interrupted 2-0 Prolene sutures for reinforcement and Dermabond was placed over the skin and a bulky dressing was applied to that area. We then turned our attention to the contralateral right axillary wound. This wound measured 10 x 6 cm, as was done on the other side the previously raised lateral chest wall flap was reelevated by removing the ar and allowing for the flap to be tentatively inset into the defect. We noted that there needed to be some further freeing of the tissue at the base of the flap by releasing some of the fascial attachments to allow for more mobilization of the flap into the defect. Once this was done, as was done on the other side, the wound was copiously irrigated with pulse lavage. Hemostasis was achieved. The flap was then inset adjacent tissue transfer, transposition into the axillary defect and inset in place using a layered closure of #0 and 2-0 Vicryl sutures. The donor site was also closed similarly using a layered approach of #0 and 2-0 Vicryl sutures for closure and a running 3-0 Prolene suture was used to close the skin followed by interrupted 2-0 Prolene sutures on top of that with reinforcement using Dermabond. Lastly we turned our attention to the right upper arm wound that measured 4 x 3 centimeter. This was a wound that resulted from excision of a previously infected tissue of hidradenitis present within it. This wound was also then irrigated with pulse lavage. Hemostasis was achieved and a secondary closure was pursued using 2-0 Vicryl sutures and 2-0 Prolene was used to close the skin. Bulky dressings were then applied to this incision as well and this completed the bilateral adjacent tissue transfer closure of bilateral axillary wounds as well as the secondary closure of all wounds resulting from excision of hidradenitis suppurativa. All needle and sponge counts were correct at the end the case. The patient tolerated the procedure well. There were no complications. Hailey Keith M.D. DR: Ewa JOB#: [id number] CC:
[2019-10-06] MEDS ORDERED: Docusate 100mg cap ORAL SCH (18:00)
[2019-10-06] MEDS: Heparin 5000 units/ml inj SUBQ SCH (21:20)
[2019-10-07] VITALS (7 sets, daily range): BP systolic 120–135; BP diastolic 72–85
[2019-10-07] MEDS: ceFAZolin sod 1 GM in D5W 55 ML IVPB SCH ×3 (05:17→21:06)
[2019-10-07 05:26] LABS: BASOPHILS % (AUTO) 0.3 % (0.0-2.0); HEMATOCRIT 43.1 % (42.0-52.0); LYMPHOCYTES % (AUTO) 10.8 % (20.0-45.0); MEAN CORPUSCULAR VOLUME 85 FL (80-99); MONOCYTES % (AUTO) 4.3 % (1.0-10.0); NEUTROPHILS % (AUTO) 84.5 % (45.0-75.0); PLATELET COUNT 330 K/UL (150-450); RED BLOOD COUNT 5.07 M/UL (4.70-6.10); RED CELL DISTRIBUTION WIDTH 10.3 % (11.6-14.8); WHITE BLOOD COUNT 13.9 K/UL (4.8-10.8)
[2019-10-07 05:45] LABS: ALANINE AMINOTRANSFERASE 84 U/L (12-78); ALBUMIN 3.4 G/DL (3.4-5.0); ALBUMIN/GLOBULIN RATIO 0.8 (1.0-2.7); ALKALINE PHOSPHATASE 123 U/L (46-116); ANION GAP 7 mmol/L (5-15); ASPARTATE AMINO TRANSFERASE 50 U/L (15-37); BILIRUBIN,TOTAL 0.6 MG/DL (0.2-1.0); BLOOD UREA NITROGEN 16 mg/dL (7-18); CALCIUM 9.2 MG/DL (8.5-10.1); CARBON DIOXIDE 29 MMOL/L (21-32); CHLORIDE 100 MMOL/L (98-107); CREATININE 1.3 MG/DL (0.55-1.30); POTASSIUM 3.8 MMOL/L (3.5-5.1); SODIUM 136 MMOL/L (136-145)
[2019-10-07] MEDS: PCA shift volume MISC SCH (07:03)
[2019-10-07] MEDS: Docusate 100mg cap ORAL SCH ×2 (08:28→18:00)
[2019-10-07] MEDS: Heparin 5000 units/ml inj SUBQ SCH ×2 (08:30→20:13)
--- NOTE | 2019-10-07 10:30 | General Progress Note ---
Assessment/Plan Problem List: (1) Hypoxia ICD Codes: R09.02 - Hypoxemia SNOMED: 252011578 (2) Hidradenitis axillaris ICD Codes: L73.2 - Hidradenitis suppurativa SNOMED: 930912641 (3) Hidradenitis suppurativa ICD Codes: L73.2 - Hidradenitis suppurativa SNOMED: 55389274 (4) Intractable pain ICD Codes: R52 - Pain, unspecified SNOMED: 74389252 Assessment/Plan: 28 year old gentleman with hydradenitis of the axilla present after surgery with pain and hypoxia. # Hydradenitis axillaris - S/P excision 10/02 S/P closure on 10/05 # Post surgical Pain # Post-surgical hypoxia - likely atelectasis - resolved # Drainage from Axilla surgical site- now has KATHLEEN - Labs reviewd - Continue Ancef - Follow up cultures - Pain control with EVENT ORGANIZER pump. - Ambulate with assist - Regular diet - Wound care - Bowel regiment - Supplimental O2 to keeps aturation above 92% if needed - SubQ heparin 5000 units BID - held for surgery - will ambulate SCDs Home with home health for wound care. I spent 38 min on this encounter talking with patient and family. Coordinated with Surgeon. Multiple calls from nursing and staff. Case management coordination. Subjective Date patient seen: Oct 07, 2019 Time patient seen: 08:00 ROS Limited/Unobtainable: No Constitutional: Reports: no symptoms HEENT: Reports: no symptoms Cardiovascular: Reports: no symptoms Respiratory: Reports: no symptoms Gastrointestinal/Abdominal: Reports: no symptoms Genitourinary: Reports: no symptoms Neurologic/Psychiatric: Reports: no symptoms Endocrine: Reports: no symptoms Hematologic/Lymphatic: Reports: no symptoms Allergies: Coded Allergies: No Known Allergies (Unverified , 10/03/19) Subjective Patient feels good. Had BM. Now has KATHLEEN drain and is comfortable with it. Objective Last 24 Hour Vital Signs Date Time Temp Pulse Resp B/P (MAP) Pulse Ox O2 Delivery O2 Flow Rate FiO2 10/07/19 09:00 Room Air 10/07/19 08:10 98.2 99 18 120/78 (92) 95 10/07/19 08:00 90 18 95 10/07/19 04:00 90 18 96 10/07/19 04:00 98.7 90 18 128/77 (94) 96 10/07/19 00:00 98.9 103 18 130/85 (100) 95 10/07/19 00:00 103 18 95 10/06/19 21:00 Room Air 10/06/19 20:00 95 Room Air 21 10/06/19 20:00 97.8 102 16 123/76 (92) 96 10/06/19 20:00 102 16 96 10/06/19 16:30 97.8 85 16 146/81 (102) 95 10/06/19 16:23 18 10/06/19 16:15 98.0 74 18 166/79 100 Nasal Cannula 3 10/06/19 16:08 17 10/06/19 15:50 85 18 167/79 100 Simple Mask 6 10/06/19 15:45 77 14 156/69 100 Simple Mask 6 10/06/19 15:40 74 14 159/69 100 Simple Mask 6 10/06/19 15:36 97.5 88 13 163/82 100 Simple Mask 6 10/06/19 15:35 91 16 100 Intake and Output 10/06/19 10/07/19 19:00 07:00 Intake Total 1100 ml 1635 ml Output Total 1055 ml 2110 ml Balance 45 ml -475 ml Intake Oral 1000 ml IV Total 1100 ml 635 ml Output Urine Total 1000 ml 2100 ml Drainage Total 30 ml 10 ml Estimated Blood Loss 25 ml # Voids 3 Laboratory Tests 10/07/19 04:55: White Blood Count 13.9H, Red Blood Count 5.07, Hemoglobin 15.0, Hematocrit 43.1 , Mean Corpuscular Volume 85, Mean Corpuscular Hemoglobin 29.6, Mean Corpuscular Hemoglobin Concent 34.8, Red Cell Distribution Width 10.3L, Platelet Count 330, Mean Platelet Volume 7.9, Neutrophils (%) (Auto) 84.5H, Lymphocytes (%) (Auto) 10.8L, Monocytes (%) (Auto) 4.3, Eosinophils (%) (Auto) 0.0, Basophils (%) (Auto) 0.3, Sodium Level 136, Potassium Level 3.8, Chloride Level 100, Carbon Dioxide Level 29, Anion Gap 7, Blood Urea Nitrogen 16, Creatinine 1.3, Estimat Glomerular Filtration Rate > 60, Glucose Level 124H, Calcium Level 9.2, Total Bilirubin 0.6, Aspartate Amino Transf (AST/SGOT) 50H, Alanine Aminotransferase (ALT/SGPT) 84H, Alkaline Phosphatase 123H, Total Protein 7.8, Albumin 3.4, Globulin 4.4, Albumin/Globulin Ratio 0.8L Height (Feet): 5 Height (Inches): 11.00 Weight (Pounds): 205 General Appearance: no apparent distress, alert, alert oriented x3 EENT: PERRL/EOMI Neck: non-tender, supple, normal inspection Cardiovascular: normal peripheral pulses, normal rate, regular rhythm, no gallop/murmur, no JVD Respiratory/Chest: chest wall non-tender, lungs clear, normal breath sounds, no respiratory distress, no accessory muscle use Abdomen: normal bowel sounds, non tender, soft, no organomegaly, no mass Extremities: normal range of motion Edema: no edema noted Arm (L), no edema noted Arm (R), no edema noted Leg (L), no edema noted Leg (R), no edema noted Pedal (L), no edema noted Pedal (R), no edema noted Generalized Neurologic: bench grinder II-XII grossly normal, alert, oriented x 3, responsive, normal mood/affect Skin: other - no has KATHLEEN drain in axilla, minimal drainage Saqib Navarro M.D. Oct 07, 2019 10:30
[2019-10-07] MEDS: LR 1000ml 1,000 ML IV SCH (14:20)
[2019-10-07] MEDS: DiphenhydrAMINE 50mg/ml Inj IVP PRN ×2 (14:27→20:38)
[2019-10-07] MEDS ORDERED: Tubing IV Secondary IV ONE (15:37)
[2019-10-07] MEDS ORDERED: oxyCODONE 5mg IR tab ORAL PRN (16:45)
[2019-10-07] MEDS: oxyCODONE 5mg IR tab ORAL PRN (18:50)
[2019-10-08] VITALS: BP 132/77
[2019-10-08] MEDS: oxyCODONE 5mg IR tab ORAL PRN (00:25)
[2019-10-08] MEDS: DiphenhydrAMINE 50mg/ml Inj IVP PRN (03:04)
[2019-10-08] MEDS: LR 1000ml 1,000 ML IV SCH (03:04)
[2019-10-08 04:00] VITALS: BP 147/87
[2019-10-08] MEDS: ceFAZolin sod 1 GM in D5W 55 ML IVPB SCH (05:42)
[2019-10-08 08:03] VITALS: BP 146/75
[2019-10-08] MEDS: Heparin 5000 units/ml inj SUBQ SCH (08:46)
[2019-10-08] MEDS: Docusate 100mg cap ORAL SCH (09:00)
[2019-10-08 09:16] LABS: BASOPHILS % (AUTO) 0.9 % (0.0-2.0); EOSINOPHILS % (AUTO) 1.7 % (0.0-3.0); HEMATOCRIT 45.2 % (42.0-52.0); HEMOGLOBIN 14.9 G/DL (14.2-18.0); LYMPHOCYTES % (AUTO) 31.3 % (20.0-45.0); MEAN CORPUSCULAR VOLUME 87 FL (80-99); MONOCYTES % (AUTO) 7.5 % (1.0-10.0); NEUTROPHILS % (AUTO) 58.6 % (45.0-75.0); PLATELET COUNT 307 K/UL (150-450); RED BLOOD COUNT 5.17 M/UL (4.70-6.10); RED CELL DISTRIBUTION WIDTH 11.5 % (11.6-14.8)
[2019-10-08] MEDS ORDERED: CEPHALEXIN500 MG ORAL (10:08)
[2019-10-08] MEDS ORDERED: TRAMADOL HCL200 M1 ORAL (10:08)
[2019-10-08] MEDS ORDERED: COLACE100 MG ORAL (10:08)
--- NOTE | 2019-10-08 10:13 | Discharge Instructions ---
Discharge Instructions Discharge Instructions Services at Discharge: home health services Diet: regular Activity: light activity, as tolerated For Surgical Patients Clean and Dry: surgical site - Dry dressings daily to incisions Dressing Care: may change May shower: Yes Saqib Navarro M.D. Oct 08, 2019 10:13
--- NOTE | 2019-10-08 11:48 | 48 Hour Post Anesthesia Eval ---
Post Anesthesia Evaluation Procedure: Bilateral Flap Closure, Axilla Date of Evaluation: Oct 08, 2019 Time of Evaluation: 11:48 Blood Pressure Systolic: 146 0: 75 Pulse Rate: 80 Respiratory Rate: 18 Temperature (Fahrenheit): 98 O2 Sat by Pulse Oximetry: 97 Airway: patent Nausea: No Vomiting: No Pain Intensity: 2 Hydration Status: adequate Cardiopulmonary Status: Stable Mental Status/LOC: patient returned to baseline Follow-up Care/Observations: 0 Post-Anesthesia Complications: 0 Follow-up care needed: N/A Delta Blount MD Oct 08, 2019 11:48
--- NOTE | 2019-10-08 12:00 | Discharge Summary ---
Discharge Summary Hospital Course Date of Admission Oct 03, 2019 at 16:00 Date of Discharge Admitting Diagnosis HPI 28 year old gentleman with a past medical history of hydradenitis presents post surgery with Dr. Keith of excision of b/l hydradenitis ini the axillary region. Pateint tolerated proedure well. The was only 50cc estimated blood loss. He received 1L of NS during the procedure. After surgery pt remained hypoxia and is currently on 3L NC. He has some pain at the surgical site that is requiring IV pain medication. Patient will be admitted for pain control, supplemental oxygen management and IV antibiotic management. Hospital Course 28 year old gentleman with hydradenitis of the axilla present after surgery with pain and drainage from surgical site. Patient tolerated procedure well. After surgery pain was controlled on MAINSPRING STRIP GAUGER pump. He had some serosanguineous drainage from surgical site. He was continued on Ancef.Vitals remained normal. and labs were grossly normal. He retuned to surgery for closure on 10/05 and tolerated well. He received dressing changes afterward. Minimal drainage from KATHLEEN drain. Patient will be discharged to home with [facility] and home health wound care. He will continue Cephalexin antibiotics for 5 more days. He will follow up with surgeon for KATHLEEN drain removal on 10/13. ED precautions given. I spent 35 min on this discharge with and additional 35 min on advanced care planning with home health. Discussed with surgeon multiple times. Coordinated with CM and RN. Discharge Medications New Medications: Cephalexin* (Keflex*) 500 Mg Capsule 500 MG ORAL EVERY 6 HOURS for 5 Days, #20 CAP Tramadol Hcl (Tramadol Hcl) 200 Mg Tab.er.24h 200 MG ORAL DAILY PRN for 15 Days, #15 TAB Docusate Sodium* (Colace*) 100 Mg Capsule 100 MG ORAL TWICE A DAY PRN for 7 Days, #14 CAP Discharge Condition Upon Discharge: stable Discharge Vital Signs Last Vital Signs Date Time Temp Pulse Resp B/P (MAP) Pulse Ox O2 Delivery O2 Flow Rate FiO2 10/08/19 11:48 80 18 97 10/08/19 09:00 Room Air 10/08/19 08:03 98.0 146/75 (98) 10/07/19 20:00 21 10/06/19 16:15 3 Discharge Disposition Patient was discharged to Discharge Diagnoses: (1) Hidradenitis suppurativa (2) Hidradenitis axillaris (3) Intractable pain Discharge Instructions Discharge Instructions Services Upon Discharge: home health services Activity: light activity, as tolerated For Surgical Patients Clean and Dry: surgical site - Dry dressings daily to incisions Dressing Care: may change May shower: Yes Saqib Navarro M.D. Oct 08, 2019 12:00
[2019-10-08 14:30] VITALS: BP 146/75
== END 2019-10-08 15:00 | disposition home health service (06) | DRG 571 ==
LOC: SUR 11:03 → 3E 16:00
PROC: 0H8BXZZ Division of Right Upper Arm Skin, External Approach (ICD-10-PCS; principal; 2019-10-03 12:00)
PROC: 0JBF0ZZ Excision of Left Upper Arm Subcutaneous Tissue and Fascia, Open Approach (ICD-10-PCS; principal; 2019-10-03 12:00)
PROC: 0JBD0ZZ Excision of Right Upper Arm Subcutaneous Tissue and Fascia, Open Approach (ICD-10-PCS; principal; 2019-10-03 12:00)
PROC: 0H8CXZZ Division of Left Upper Arm Skin, External Approach (ICD-10-PCS; principal; 2019-10-03 12:00)
PROC: 0JXD0ZZ Transfer Right Upper Arm Subcutaneous Tissue and Fascia, Open Approach (ICD-10-PCS; 2019-10-06)
PROC: 0JXF0ZZ Transfer Left Upper Arm Subcutaneous Tissue and Fascia, Open Approach (ICD-10-PCS; 2019-10-06)
PROC: 0JQD0ZZ Repair Right Upper Arm Subcutaneous Tissue and Fascia, Open Approach (ICD-10-PCS; 2019-10-06)
DX: L73.2 Hidradenitis suppurativa (principal); J98.11 Atelectasis; R09.02 Hypoxemia; G89.18 Other acute postprocedural pain
CPT/HCPCS: 36415; 80053; 83735; 85025; 94003; 94150; J2180; J2250; J2405; J2710; J2765